=== PATIENT | male | born 1990 | race African-American/Black ===

== ENCOUNTER 2017-09-24 15:26 | Emergency (ER) | payer OTHER ==
[~2017-09-24] VITALS: Ht 170.2 cm; Wt 114.7 kg
[~2017-09-24 15:26] MED LIST: AUGMENTIN875 MG PO; DOCUSATE SODIU100 MG PO; FLEXERIL10 MG PO; FLEXERIL5 MG PO; GABAPENTIN300 MG PO; MOTRIN600 MG PO; MUCINEX DM ER1 EACH PO; NAPROXEN500 MG PO; NORCO 5/3251 TABLET PO; OXYCODONE HCL10 MG PO; PEN-VEE K,VEET500 MG PO; PROMETHAZINE HC25 M1 PO; TESSALON PERLE100 MG PO; TORADOL10 MG PO; TRAMADOL HCL50 MG PO; TYLENOL WITH C1 EACH PO
[2017-09-24] MEDS ORDERED: NAPROSYN500 MG PO (17:51)
[2017-09-24] MEDS ORDERED: ROBAXIN750 MG PO (17:51)
[2017-09-24 18:12] VITALS: BP 134/72
== END 2017-09-24 18:16 | disposition home or self-care (01) ==
LOC: EME 15:26
DX: R07.89 Other chest pain (principal); G62.9 Polyneuropathy, unspecified; Z79.891 Long term (current) use of opiate analgesic; Z98.890 Other specified postprocedural states
CPT/HCPCS: 71046; 93005; 99281; 99284

== ENCOUNTER 2017-10-16 21:54 | Emergency (ER) | payer OTHER ==
[~2017-10-16] VITALS: Ht 170.2 cm; Wt 115.8 kg
[~2017-10-16 21:54] MED LIST changes: +NAPROSYN500 MG PO; +ROBAXIN750 MG PO
[2017-10-16] MEDS ORDERED: NORCO 5/3251 TABLET PO (22:56)
[2017-10-16 23:10] VITALS: BP 127/83
== END 2017-10-16 23:13 | disposition home or self-care (01) ==
LOC: EME 21:54
DX: S16.1XXA Strain of muscle, fascia and tendon at neck level, initial encounter (principal); V49.50XA Passenger injured in collision with unspecified motor vehicles in traffic accident, initial encounter; Y92.410 Unspecified street and highway as the place of occurrence of the external cause
CPT/HCPCS: 99281; 99283